=== PATIENT | female | born 1985 | race Caucasian/White ===

== ENCOUNTER 2016-07-28 11:50 | Emergency (ER) | payer OTHER ==
[~2016-07-28] VITALS: Ht 167.6 cm; Wt 108.0 kg
[2016-07-28] MEDS ORDERED: LACTATED RINGER'S 1000 ML INJ 1,000 ML IV SCH (12:49)
--- NOTE | 2016-07-28 12:59 | PD ---
HPI Travel History International Travel<30 Days: No Contact w/Intl Traveler<30Days: No Known Affected Area: No History of Present Illness HPI This patient is a 31-year-old 1 para 0 EDC is November 24, 2016 presently at 23 weeks and 6 days she presents with the chief complaint of dizziness and feeling tired like she is going to pass out States that for the past several years she's been feeling like her heart is racing. States that the cramping is intermittent mild nonradiating nothing makes it better nothing makes it worse Also has a chief complaint of cramps in her lower uterine area and vagina no ruptured membranes no vaginal bleeding denies any urinary tract symptoms no recent sexual intercourse no discharge odors or itching States that she's had nausea and vomiting throughout the entire and last vomited one week ago care with Dr. Iqbal no problems other than the nausea and vomiting early in the History Past Medical History Narrative Medical Allergy to sulfa History of asthma and anxiety States that she has had an anaphylactic reaction in the past due to allergies seasonal allergies which leads to asthma Obstetric History Obstetric History First Past Surgical History Narrative Surgical Tonsils and adenoids Family History Narrative Family History Diabetes hypertension heart disease Social History Alcohol Use: No Tobacco Use: No Substance Abuse: No Allergies-Medications (Allergen,Severity, Reaction): Coded Allergies: Sulfa (Verified Allergy, Mild, vomiting, 07/28/16) Comments Allergy to sulfa Review of Systems General / Constitutional: Weight Loss (15 pound weight loss early in the due to nausea vomiting) Eyes: No: Diploplia, Blurred Vision, Visual changes, Pain, Photophobia, Other HENT: Headaches (has a mild headache) Cardiovascular: Other (occasionally feels like heart is racing) Respiratory: No: Cough, Short of Breath, Wheezing, Other Gastrointestinal: Nausea, Vomiting (history of nausea vomiting none presently) , Abdominal Pain (lower abdominal cramping) Genitourinary: Frequency Musculoskeletal: Weakness Skin: No Rash, No Itching, No Dryness, No Lumps, No Change in Pigmentation, No Change in Nails, No Alopecia, No Lesions, No Breast Lumps, No Breast Tenderness , No Breast Swelling, No Other Neurologic: Dizziness, No: Weakness, Syncope, Focal Abnormalities, Coordination Problem, Headache, Slurred Speech, Seizures, Other Psychiatric: Anxiety Physical Exam Narrative GENERAL: Well-nourished, well-developed patient. Alert oriented 3 and cooperative in no acute distress SKIN: Warm and dry. HEAD: Normocephalic and atraumatic. EYES: No scleral icterus. No injection or drainage. Conjunctiva are pink ENT: No nasal drainage noted. Mucous membranes pink. Airway patent. NECK: Supple, trachea midline. No JVD. CARDIOVASCULAR: Regular rate and rhythm without murmurs, gallops, or rubs. RESPIRATORY: Breath sounds equal bilaterally. No accessory muscle use. ABDOMEN/GI: Abdomen soft, non-tender, bowel sounds present, no rebound, no guarding uterus is consistent with 23 weeks Gravid to [-] weeks size 23 Fundal Height: [-] GENITOURINARY: Speculum exam no fluid no blood cervical ectropion is present External Genitalia: intact and normal in appearance BUS glands: [-] Cervix: [-] Posterior Dilatation: [-] 0 Effacement: [-] 0 Station: [-] High Presentation: [-] Membranes: [intact Uterine Contractions: [-]0 FHT's: Category: [-] Baseline: [-] 150 on ultrasound Reactive: [-] Variability: [-] Decels: [-] EXTREMITIES: No cyanosis or edema. 2+ NEUROLOGICAL: Awake and alert. Motor and sensory grossly within normal limits. Five out of 5 muscle strength in all muscle groups. Normal speech. Data Data Vital Signs Reviewed: Yes (127/86 pulse is 103 she is afebrile) Labs Glucose fingerstick of 76 Bedside ultrasound is done it's a vertex presentation BPD is 5.68 equaling 23 weeks and 3 days Anterior grade 2 placenta No abruption no previa Largest amniotic fluid pocket is 5.65 x 3.2 heart rate is 150 No funneling at the internal os Cervical length approximately 5 cm MDM Medical Record Reviewed: No Interpretation(s) 31-year-old at 23 weeks and 6 days Not in labor Mild dehydration Rule out anemia Rule out labor risk Plan heart rate via Doppler/ultrasound IV fluid hydration CBC, fingerstick, urinalysis fibronectin By mouth fluid hydration Reevaluation hemoglobin is 11 hematocrit is 34 Culture is indicated on the urinalysis fibronectin is negative We'll discharge patient home Rest Warm tub bath By mouth fluid hydration Keflex 500 mg by mouth 3 times a day for 7 days Keep her next appointment with Dr. Iqbal Diagnosis Diagnosis: Primary Impression: 23 weeks gestation of Additional Impression: UTI (urinary tract infection) in in second trimester Disposition: 01 DISCHARGE HOME Condition: Stable Deysi Young MD July 28, 2016 12:59
[2016-07-28 13:13] LABS: HEMATOCRIT 34.7 % (35.0-46.0); MEAN CELL VOLUME 86.8 FL (80.0-100.0); MEAN CORPUSCULAR HEMOGLOBIN 29.1 PG (27.0-34.0); MEAN CORPUSCULAR HGB CONC 33.5 % (32.0-36.0); PLATELET COUNT 192 TH/MM3 (150-450); RED CELL DISTRIBUTION WIDTH 14.1 % (11.6-17.2); REVIEW FLAG FINAL; WHITE BLOOD COUNT 11.1 TH/MM3 (4.0-11.0)
[2016-07-28 13:17] LABS: BACTERIA, URINE FEW /hpf; BLOOD, URINE NEG (NEG); GLUCOSE,URINE NEG (NEG); KETONE, URINE NEG (NEG); MUCUS URINE FEW /lpf (OCC); NITRITE,URINE NEG (NEG); PH, URINE 6.5 (5.0-8.5); SQUAMOUS EPITHELIAL CELL URINE 12 /hpf (0-5); TRANSITIONAL EPI CELLS, URINE <1 /hpf; URINE COLOR YELLOW (YELLW/STRAW)
[2016-07-28 13:18] LABS: COMMENT (UR) CULTURE INDICATED; CULTURE IF INDICATED CULTURE INDICATED
== END 2016-07-28 14:42 | disposition home or self-care (01) ==
LOC: HOBED 11:50
DX: O23.42 Unspecified infection of urinary tract in pregnancy, second trimester (principal); Z3A.23 23 weeks gestation of pregnancy
CPT/HCPCS: 76815; 81001; 82731; 85027; 87086; 96360; 99284; J7120

== ENCOUNTER 2016-11-04 05:52 | Emergency (ER) | payer OTHER ==
--- NOTE | 2016-11-04 06:57 | PD ---
HPI Chief Complaint Complains of contractions Date Seen: Nov 04, 2016 Travel History International Travel<30 Days: No Contact w/Intl Traveler<30Days: No Known Affected Area: No History of Present Illness HPI Patient is a 31-year-old white female at [address] Cowan. She presents combining of contractions. No bleeding or leakage of fluid. heart rate tracing is reactive and she is tova. Patient is a she was seen in the office yesterday or today before checked and was 3-4 cm and stripped her membranes., Para: 0 : 1 History Past Medical History Narrative Medical Gestational diabetes diet controlled Social History Alcohol Use: No Tobacco Use: No Substance Abuse: No Allergies-Medications (Allergen,Severity, Reaction): Coded Allergies: Sulfa (Sulfonamide Antibiotics) (Unverified Allergy, Mild, vomiting, ) Review of Systems General / Constitutional: No: Fever, Weight Gain, Chills, Other Eyes: No: Diploplia, Blurred Vision, Visual changes, Pain, Photophobia HENT: No: Headaches, Vertigo, Lightheadedness Cardiovascular: No: Irregular Rhythm, Chest Pain or Discomfort, Palpitations, Tachycardia, Syncope, Varicosities, Edema, Cyanosis Respiratory: No: Cough, Short of Breath, Other Gastrointestinal: Abdominal Pain, No: Nausea, Vomiting, Diarrhea Genitourinary: No: Decreased Urinary Output, Oliguria Musculoskeletal: No: Limited ROM, Weakness, Cramping, Edema, Pain Skin: No Rash, No Itching, No Dryness, No Lumps, No Change in Pigmentation, No Change in Nails, No Alopecia, No Lesions Neurologic: No: Weakness, Dizziness, Syncope, Focal Abnormalities, Coordination Problem, Headache, Slurred Speech, Seizures Psychiatric: No: Depression, Suicidal Ideations, Homicidal Ideation Endocrine: No: Heat Intolerance, Cold Intolerance, Polydipsia, Polyuria, Other Physical Exam Narrative GENERAL: Well-nourished, well-developed patient. SKIN: Warm and dry. HEAD: Normocephalic and atraumatic. EYES: No scleral icterus. No injection or drainage. ENT: No nasal drainage noted. Mucous membranes pink. Airway patent. NECK: Supple, trachea midline. No JVD. CARDIOVASCULAR: Regular rate and rhythm without murmurs, gallops, or rubs. RESPIRATORY: Breath sounds equal bilaterally. No accessory muscle use. BREASTS: Bilateral exam showed no masses , no retractions, no nipple discharge. ABDOMEN/GI: Abdomen soft, non-tender, bowel sounds present, no rebound, no guarding Gravid to [-37] weeks size Fundal Height: [37-] GENITOURINARY: External Genitalia: intact and normal in appearance BUS glands: [-] Cervix: [-] Dilatation: [-3-4 cm] Effacement: [50-] Station: [-3] Presentation: [vtx-] Membranes: [intact ] Uterine Contractions: [q 3 min-] FHT's: Category: [-1] Baseline: [-133] Reactive: [-yes] Variability: [-mod] Decels: [none-] EXTREMITIES: No cyanosis or edema. BACK: Nontender without obvious deformity. No CVA tenderness. NEUROLOGICAL: Awake and alert. Motor and sensory grossly within normal limits. Five out of 5 muscle strength in all muscle groups. Normal speech. MDM Interpretation(s) Patient is 31-year-old white female at 37 weeks presents planning contractions. She is having some discomfort with ,but not a lot of pain. No bleeding or leakage of fluid. heart rate tracing is reactive. She is tova about every 3 minutes. Patient's cervix is some is was when she was checked several days ago 3-4 thick and high. Plan Plan to discharge home patient return when contractions are stronger and more regular or if she starts bleeding or leakage of fluid. She is to follow-up with her OB provider Jayson Pierre II, MD Nov 04, 2016 06:57
--- NOTE | 2016-11-04 07:05 | PD ---
HPI Chief Complaint contractions Date Seen: Nov 04, 2016 Travel History International Travel<30 Days: No Contact w/Intl Traveler<30Days: No Known Affected Area: No History of Present Illness HPI Ms. Lieberman is a 31 yo G[address] Iqbal at 37 1/7 weeks who presents with concern for contractions. Patient states that she began having contractions at approximately 3:30 this morning which she describes as worsening and worse than cramping related to menstruation. Patient states that this pain is also in her back. Patient reports that she was instructed to seek care at OB ED in case of possible labor. Patient states that she saw Dr. Mcclellan yesterday; cervical check was performed and patient was reportedly 34 centimeters dilated. Patient reports that her membranes were swept, that she subsequently lost her mucous plug yesterday. She attributes this to onset of contractions which have been worsening. Patient reports some mucousy/bloody discharge, dysphagia that she suspects this is her mucous plug. Patient does not think she lost alana vaginal fluid or vaginal bleeding. Patient reports normal movement. Patient reports benign course with exception of diet controlled gestational diabetes. Patient also reports history of asthma but that she has not had to use previously prescribed albuterol inhaler. Patient does not report chest pain, shortness of breath, vomiting, dysuria, or other symptoms this time. Patient does report nausea. : 1 History Past Medical History Narrative Medical Asthmaprescribed Advair but does not use Medical History: Denies Significant Hx Obstetric History Obstetric History G1 GDM -Diet controlled Past Surgical History Narrative Surgical No past surgical history reported Family History Narrative Family History Coronary artery disease, hypertension, T2 DM Social History Alcohol Use: No Tobacco Use: No Substance Abuse: No Allergies-Medications (Allergen,Severity, Reaction): Coded Allergies: Sulfa (Sulfonamide Antibiotics) (Unverified Allergy, Mild, vomiting, ) Review of Systems General / Constitutional: No: Fever Eyes: No: Blurred Vision HENT: No: Headaches Cardiovascular: No: Chest Pain or Discomfort Respiratory: No: Short of Breath Gastrointestinal: Nausea, Abdominal Pain, No: Vomiting Genitourinary: No: Dysuria Physical Exam reassuring Narrative GENERAL: Well-nourished, well-developed patient. SKIN: Warm and dry. HEAD: Normocephalic and atraumatic. EYES: No scleral icterus. No injection or drainage. ENT: No nasal drainage noted. Mucous membranes pink. Airway patent. NECK: Supple, trachea midline. No JVD. CARDIOVASCULAR: Regular rate and rhythm without murmurs, gallops, or rubs. RESPIRATORY: Breath sounds equal bilaterally. No accessory muscle use. ABDOMEN/GI: Abdomen soft, non-tender, bowel sounds present, no rebound, no guarding Gravid EXTREMITIES: No cyanosis or edema. NEUROLOGICAL: Awake and alert. Motor and sensory function grossly within normal limits. GENITOURINARY: External Genitalia: intact and normal in appearance Cervix: Dilatation: 3-4cm Effacement: 50% Station: -3 Presentation: V Membranes: intact Uterine Contractions: irritability FHT's: Category: 1 Baseline: 135 Reactive: Y Variability: Mod Decels: None Data Data Vital Signs Reviewed: Yes MDM Medical Record Reviewed: Yes Narrative Course / MDM 31 yo G1 [address] of [address] Iqbal at 37 1/7 weeks -Cat 1 rhythm Cervix 3-4 cm/50%/-3 -Irritability on EFM -Diet controlled GDM? per EMR -GBS obtained last week; result unknown Plan: -Continue EFM -Due to lack of cervical change since appointment with Dr. Mcclellan yesterday, will monitor for contractions and plan to recheck cervix to assess whether making change Updated plan: No contractions on EFM suggesting cervical change. Patient deemed stable for discharge home due to suspected early latent labor. Patient advised to return to the ED with contractions occurring every 34 minutes 1 hour or other concerns such as loss of fluid, vaginal bleeding, or decreased movement Diagnosis Diagnosis: Primary Impression: 37 weeks gestation of Additional Impression: False labor after 37 completed weeks of gestation Disposition: 01 DISCHARGE HOME Condition: Stable Patient Instructions: General Instructions, Early Labor Signs (ED), Gestational Diabetes (ED) Ariel Figueroa MD, R3 Nov 04, 2016 07:05
== END 2016-11-04 08:23 | disposition home or self-care (01) ==
LOC: HOBED 05:52
DX: O47.1 False labor at or after 37 completed weeks of gestation (principal); R11.0 Nausea; J45.909 Unspecified asthma, uncomplicated; Z3A.37 37 weeks gestation of pregnancy
CPT/HCPCS: 59025

== ENCOUNTER 2016-11-05 11:33 | Inpatient (IN) | payer OTHER ==
[2016-11-05] VITALS (76 sets, daily range): BP systolic 84–159; BP diastolic 36–97; PULSE 64–157; RESP 16–20; TEMP 98.3–98.9
[2016-11-05] MEDS ORDERED: CITRIC ACID-SODIUM CITRATE LIQ 30 ML UDC PO SCH (12:15)
[2016-11-05] MEDS ORDERED: LIDOCAINE HCL 1% 50 ML VIAL INFIL PRN (12:15)
[2016-11-05] MEDS ORDERED: OXYTOCIN 30 UNITS-500ML PREMIX 500 ML IV ONE (12:15)
[2016-11-05] MEDS ORDERED: MINERAL OIL 10 ML VIAL TOPICAL PRN (12:15)
[2016-11-05] MEDS ORDERED: LACTATED RINGER'S 1000 ML INJ 1,000 ML IV SCH (12:15)
[2016-11-05] MEDS ORDERED: LIDOCAINE HCL 1% 50 ML VIAL I-DERMAL PRN (12:15)
[2016-11-05] MEDS ORDERED: SODIUM CHLORID 0.9% 500 ML INJ 500 ML IV PRN (12:15)
[2016-11-05] MEDS ORDERED: LACTATED RINGER'S 1000 ML INJ 1,000 ML IV PRN (12:15)
--- NOTE | 2016-11-05 12:23 | HHI.HP ---
HPI Chief Complaint Leaking fluid Date Seen: Nov 05, 2016 Travel History International Travel<30 Days: No Contact w/Intl Traveler<30Days: No Known Affected Area: No History of Present Illness HPI Patient is 31-year-old white female at 37-38 weeks who is a patient Dr. Cowan who presents with gross ruptured membranes. Denies bleeding. She is having a few contractions. heart rate tracing is reactive and contractions are noted on the monitor. Para: 0 : 1 Last Menstrual Period: Nov 05, 2016 History Past Medical History Narrative Medical Gestational diabetes diet controlled Social History Alcohol Use: No Tobacco Use: No Substance Abuse: No Allergies-Medications (Allergen,Severity, Reaction): Coded Allergies: Sulfa (Sulfonamide Antibiotics) (Unverified Allergy, Mild, vomiting, ) Review of Systems General / Constitutional: No: Fever, Weight Gain, Chills, Other Eyes: No: Diploplia, Blurred Vision, Visual changes, Pain, Photophobia HENT: No: Headaches, Vertigo, Lightheadedness Cardiovascular: No: Irregular Rhythm, Chest Pain or Discomfort, Palpitations, Tachycardia, Syncope, Varicosities, Edema, Cyanosis Respiratory: No: Cough, Short of Breath, Other Gastrointestinal: No: Nausea, Vomiting, Diarrhea Genitourinary: No: Decreased Urinary Output, Oliguria Musculoskeletal: No: Limited ROM, Weakness, Cramping, Edema, Pain Skin: No Rash, No Itching, No Dryness, No Lumps, No Change in Pigmentation, No Change in Nails, No Alopecia, No Lesions Neurologic: No: Weakness, Dizziness, Syncope, Focal Abnormalities, Coordination Problem, Headache, Slurred Speech, Seizures Psychiatric: No: Depression, Suicidal Ideations, Homicidal Ideation Endocrine: No: Heat Intolerance, Cold Intolerance, Polydipsia, Polyuria, Other Physical Exam Narrative GENERAL: Well-nourished, well-developed patient. SKIN: Warm and dry. HEAD: Normocephalic and atraumatic. EYES: No scleral icterus. No injection or drainage. ENT: No nasal drainage noted. Mucous membranes pink. Airway patent. NECK: Supple, trachea midline. No JVD. CARDIOVASCULAR: Regular rate and rhythm without murmurs, gallops, or rubs. RESPIRATORY: Breath sounds equal bilaterally. No accessory muscle use. BREASTS: Bilateral exam showed no masses , no retractions, no nipple discharge. ABDOMEN/GI: Abdomen soft, non-tender, bowel sounds present, no rebound, no guarding Gravid to [-38] weeks size Fundal Height: [38-] GENITOURINARY: External Genitalia: intact and normal in appearance BUS glands: [-] Cervix: [-] Dilatation: [5-6-] Effacement: [50-] Station: [-3] Presentation: [vtx-] Membranes: ruptured] Uterine Contractions: [reg-] FHT's: Category: [-1] Baseline: [133-] Reactive: [yes-] Variability: [mod-] Decels: [none-] EXTREMITIES: No cyanosis or edema. BACK: Nontender without obvious deformity. No CVA tenderness. NEUROLOGICAL: Awake and alert. Motor and sensory grossly within normal limits. Five out of 5 muscle strength in all muscle groups. Normal speech. Data Data Orders Ob (2e) Additional Admit Info (11/05/16 12:00) Ob (2e) Additional Admit Info (11/05/16 12:14) Labs amnisure ++ GBS neg Assessment/Plan Assessment and Plan Patient is 31-year-old white female at 37-1/2 weeks presents with gross rupture membranes and early labor. She sees Dr. qIbal for care. Heart rate tracing is reactive and she is tova on the monitor. cx 6 cm 50% /-3 . GBS is negative Impression SROM at 30 7/2 weeks early labor Admit for labor management/augmentation and anticipate vaginal delivery Jayson Degroot II, MD Nov 05, 2016 12:23
[2016-11-05] MEDS ORDERED: SODIUM CHLOR 0.9% 1000 ML INJ 1,000 ML IV PRN (12:35)
[2016-11-05 12:55] LABS: BACTERIA, URINE RARE /hpf; BLOOD, URINE NEG (NEG); COMMENT (UR) CULTURE INDICATED; CULTURE IF INDICATED CULTURE INDICATED; GLUCOSE,URINE NEG (NEG); KETONE, URINE 40 mg/dL (NEG); MUCUS URINE FEW /lpf (OCC); NITRITE,URINE NEG (NEG); PH, URINE 6.5 (5.0-8.5); SQUAMOUS EPITHELIAL CELL URINE 7 /hpf (0-5); URINE COLOR YELLOW (YELLW/STRAW)
[2016-11-05] MEDS ORDERED: OXYTOCIN 30 UNITS-500ML PREMIX 500 ML IV SCH (13:15)
[2016-11-05 13:26] LABS: AUTOMATED NEUTROPHIL # 8.6 TH/MM3 (1.8-7.7); BASOPHIL % 0.4 % (0.0-2.0); EOSINOPHIL # 0.1 TH/MM3 (0-0.4); HEMATOCRIT 36.7 % (35.0-46.0); HEMO FLAGS DIFF FINAL; LYMPHOCYTE # 1.7 TH/MM3 (1.0-4.8); MEAN CELL VOLUME 87.5 FL (80.0-100.0); MEAN CORPUSCULAR HEMOGLOBIN 28.8 PG (27.0-34.0); MEAN CORPUSCULAR HGB CONC 32.9 % (32.0-36.0); MONO % 5.8 % (0.0-8.0); NEUT % 77.8 % (16.0-70.0); PLATELET COUNT 155 TH/MM3 (150-450); RED BLOOD COUNT 4.19 MIL/MM3 (4.00-5.30); RED CELL DISTRIBUTION WIDTH 13.7 % (11.6-17.2)
[2016-11-05] MEDS ORDERED: ePHEDrine/NS 25 MG/5 ML SYR ONE (16:22)
[2016-11-05] MEDS ORDERED: fentaNYL 2MCG-BUPIV 0.125% INJ 100 ML ONE (16:22)
[2016-11-05] MEDS ORDERED: BUPIVACAINE HCL PF 0.25% 10 ML VIAL ONE (16:36)
[2016-11-05] MEDS ORDERED: DO NOT ADMINISTER ANTICOAGULANTS PRN (17:45)
[2016-11-05] MEDS ORDERED: ePHEDrine/NS 25 MG/5 ML SYR IV PRN (17:45)
[2016-11-05] MEDS ORDERED: NO SYSTEM NARCOTICS PRN (17:45)
[2016-11-05] MEDS ORDERED: fentaNYL 2MCG-BUPIV 0.125% 100 ML EPIDURAL SCH (17:45)
[2016-11-06] VITALS (11 sets, daily range): BP systolic 115–141; BP diastolic 69–81; PULSE 79–116; RESP 16–20; TEMP 97.8–98.9
--- NOTE | 2016-11-06 00:11 | PD.OB.DELI ---
Delivery Date: Nov 05, 2016 Anesthesia: Epidural Episiotomy: None Vaginal Delivery: Normal Presentation: Occiput anterior Nuchal Cord: None Delayed cord clamping (45 sec): Yes Infant: Male One Minute : 7 Five Minute : 8 Weight: pending, baby to nicu Placenta: Spontaneous delivery Laceration: 2 deg Repair: Chromic running Estimated blood loss: 300ml Additional Information Baby to NICU, required O2 supplementation Yue Iqbal MD Nov 06, 2016 00:11
[2016-11-06] MEDS ORDERED: DOCUSATE SODIUM 50 MG/SENNA 8.6 MG TAB PO PRN (00:15)
[2016-11-06] MEDS ORDERED: SODIUM CHLORIDE 0.9% FLUSH 10 ML FLUSH IV FLUSH PRN (00:15)
[2016-11-06] MEDS ORDERED: OXYTOCIN 30 UNITS-500ML PREMIX 500 ML IV SCH (00:15)
[2016-11-06] MEDS ORDERED: ALUMINUM/MAGNESIUM/SIMETH 30 ML CUP PO PRN (00:15)
[2016-11-06] MEDS ORDERED: BENZOCAINE 20% TOPICAL SPRAY 60 ML CAN TOPICAL PRN (00:15)
[2016-11-06] MEDS ORDERED: ZOLPIDEM TARTRATE 5 MG TAB PO PRN (00:15)
[2016-11-06] MEDS ORDERED: ONDANSETRON ODT 4 MG TAB PO PRN (00:15)
[2016-11-06] MEDS: IBUPROFEN 600 MG TAB PO PRN ×3 (02:55→18:12)
[2016-11-06] MEDS: WITCH HAZEL 50%/GLYCERIN 12.5% 40 PAD JAR TOPICAL PRN (02:55)
[2016-11-06] MEDS ORDERED: SODIUM CHLORIDE 0.9% FLUSH 10 ML FLUSH IV FLUSH SCH (09:00)
--- NOTE | 2016-11-06 11:56 | HHI.OB ---
Subjective Post Day: 1 Remarks doing well. baby in nicu but off of cpap now. Objective Vitals/I&O Vital Signs Date Time Temp Pulse Resp B/P Pulse Ox O2 Delivery O2 Flow Rate FiO2 11/06/16 07:27 97.8 83 18 141/81 11/06/16 02:30 98.5 98 20 128/78 11/06/16 01:01 97 136/73 11/06/16 01:01 97 136/73 11/06/16 00:58 18 11/06/16 00:46 101 130/78 11/06/16 00:31 112 115/78 11/06/16 00:30 98.9 11/06/16 00:30 18 11/06/16 00:20 20 11/06/16 00:16 111 121/74 11/06/16 00:01 116 135/75 11/06/16 00:01 116 135/75 11/05/16 23:50 20 11/05/16 23:31 143 140/82 11/05/16 23:01 125 159/93 11/05/16 22:46 127 1817 22:46 156/70 18 22:35 20 1817 22:31 113 159/64 17 22:17 110 125/71 1817 22:15 20 11/05/16 22:01 115 139/97 1817 21:46 102 125/85 1817 21:45 18 1817 21:31 96 126/70 1817 21:17 104 103/64 1817 21:15 20 1817 21:00 82 109/72 1817 20:46 92/71 1817 20:46 157 18/17 20:34 18 18/17 20:31 97 113/61 1817 20:16 102 110/71 18/17 20:13 16 18/17 20:13 18 18/17 20:01 94 122/67 18/17 19:45 18 18/17 19:45 103 121/76 1817 19:31 118 110/83 1817 19:16 94 8/18/17 19:16 123/72 8/18/17 19:15 18 8/18/17 19:15 98.7 8/18/17 19:01 124/76 8/18/17 19:01 87 8/18/17 18:46 87 126/71 8/18/17 18:45 20 8/18/17 18:30 97 106/56 8/18/17 18:16 96 95/52 8/18/17 18:07 98.8 20 8/18/17 18:01 94 105/52 8/18/17 17:46 90 117/71 8/18/17 17:45 85 8/18/17 17:45 20 8/18/17 17:40 82 8/18/17 17:35 80 8/18/17 17:31 89 108/81 818/17 17:30 88 8/18/17 17:25 83 8/18/17 17:20 88 818/17 17:16 95 99/71 818/17 17:15 92 18/17 17:10 84 818/17 17:10 90 818/17 17:08 74 95/46 818/17 17:06 64 84/36 8/18/17 17:05 82 8/18/17 17:05 81 818/17 17:01 97 112/62 818/17 17:00 104 818/17 17:00 20 8/18/17 17:00 108 818/17 16:56 97 111/74 818/17 16:55 90 8/18/17 16:55 92 8/18/17 16:51 88 124/78 8/18/17 16:50 89 8/18/17 16:50 87 8/18/17 16:45 90 126/78 8/18/17 16:45 88 8/18/17 16:45 89 8/18/17 16:40 94 8/18/17 16:40 93 118/77 8/18/17 16:40 84 8/18/17 16:35 96 8/18/17 16:35 98 8/18/17 16:30 103 8/18/17 15:41 93 111/79 8/18/17 15:40 95 8/18/17 15:35 97 8/18/17 15:30 99 11/05/16 15:29 98.9 20 11/05/16 15:25 96 11/05/16 15:20 93 109/71 11/05/16 15:20 91 11/05/16 15:15 100 11/05/16 15:09 20 11/05/16 15:08 98 108/71 11/05/16 15:05 97 11/05/16 15:00 99 11/05/16 14:30 98.3 20 11/05/16 14:25 101 11/05/16 14:20 98 11/05/16 14:15 95 11/05/16 14:15 95 121/77 11/05/16 13:25 95 11/05/16 13:23 95 118/67 11/05/16 13:20 97 11/05/16 13:15 103 Objective Remarks GENERAL: Well-nourished, well-developed patient. CARDIOVASCULAR: Regular rate and rhythm without murmurs, gallops, or rubs. RESPIRATORY: Breath sounds equal bilaterally. No accessory muscle use. ABDOMEN/GI: Abdomen soft, non-tender. Fundus: Firm, non-tender at umbilicus. GENITOURINARY: Light to moderate bleeding. EXTREMITIES: No cyanosis or edema, non-tender, without signs of DVT. Medications and IVs Current Medications Medications (Trade) Dose Ordered Sig/Nimco Route Start Time Stop Time Status Last Admin (NS Flush) 2 ml BID IV FLUSH 11/06/16 09:00 (NS Flush) 2 ml UNSCH PRN IV FLUSH 11/06/16 00:15 (Tylenol) 650 mg Q4H PRN PO 11/06/16 00:15 (Motrin) 600 mg Q6H PRN PO 11/06/16 00:15 11/06/16 02:55 (Americaine 20% Top Spr) 1 spray Q4H PRN TOPICAL 11/06/16 00:15 11/06/16 02:55 (Tucks Pads) 1 applic QID PRN TOPICAL 11/06/16 00:15 11/06/16 02:55 (Jyoti-Colace) 2 tab Q12H PRN PO 11/06/16 00:15 (Ambien) 5 mg HS PRN PO 11/06/16 00:15 (M-M-R Ii Inj) 0.5 ml ONCE ONCE SQ 11/06/16 16:00 11/06/16 16:01 (Boostrix Inj) 0.5 ml ONCE ONCE IM 11/06/16 16:00 11/06/16 16:01 (Mag-Al Plus Susp Liq) 15 ml Q8H PRN PO 11/06/16 00:15 (Zofran Odt) 4 mg Q6H PRN PO 11/06/16 00:15 Assessment/Plan Assessment and Plan pod 1 sp rhogam eval cont routine supportive care Discharge Planning dc home ppd 2 Yue Iqbal MD Nov 06, 2016 11:56
[2016-11-06] MEDS: ACETAMINOPHEN 325 MG TAB PO PRN ×2 (11:59→18:13)
[2016-11-06] MEDS ORDERED: DIPHTH/TETANUS/ACEL PERTUSSIS (BOOSTER) 0.5 ML VIAL/PFS IM ONE (16:00)
[2016-11-06] MEDS ORDERED: MEASLES, MUMPS, RUBELLA VACCINE 0.5 ML VIAL SQ ONE (16:00)
--- NOTE | 2016-11-06 18:05 | HHI.DCPOC ---
Discharge Care Plan Diagnosis: (1) (spontaneous vaginal delivery) Your Health Problems Are: Abdominal pain Report Symptoms to Your Doctor -Temperature above 100.5 degrees -Redness, of incision or excessive or foul smelling drainage -Unusual pain or calf pain -Increased vaginal bleeding -Painful or difficulty urinating -Feelings of extreme sadness or anxiety after 2 weeks Goals to Promote Your Health * To prevent worsening of your condition and complications * To maintain your health at the optimal level Directions to Meet Your Goals Take your medications as prescribed Follow your dietary instruction Follow activity as directed Ensure plenty of rest for recovery Drink fluids for hydration Keep your appointments as scheduled Take your immunizations and boosters as scheduled If your symptoms worsen call your PCP, if no PCP go to Urgent Care Center or Emergency Room Smoking is Dangerous to Your Health. Avoid second hand smoke Call the 24-hour crisis hotline for domestic abuse at Yue Iqbal MD Nov 06, 2016 18:05
[2016-11-06] MEDS ORDERED: IBUP-232 PO (18:06)
[2016-11-07] MEDS: IBUPROFEN 600 MG TAB PO PRN ×2 (00:09→07:45)
[2016-11-07] MEDS: ACETAMINOPHEN 325 MG TAB PO PRN ×2 (00:10→07:45)
--- NOTE | 2016-11-07 05:16 | HHI.OB ---
Subjective Post Day: 2 Remarks Doing well, Baby not on O2 any more. She was able to br feed last night Objective Vitals/I&O Vital Signs Date Time Temp Pulse Resp B/P Pulse Ox O2 Delivery O2 Flow Rate FiO2 11/06/16 22:20 97.8 79 16 120/69 11/06/16 07:27 97.8 83 18 141/81 Objective Remarks GENERAL: Well-nourished, well-developed patient. CARDIOVASCULAR: Regular rate and rhythm without murmurs, gallops, or rubs. RESPIRATORY: Breath sounds equal bilaterally. No accessory muscle use. ABDOMEN/GI: Abdomen soft, non-tender. Fundus: Firm, non-tender at umbilicus. GENITOURINARY: Light to moderate bleeding. EXTREMITIES: No cyanosis or edema, non-tender, without signs of DVT. Medications and IVs Current Medications Medications (Trade) Dose Ordered Sig/Nimco Route Start Time Stop Time Status Last Admin (NS Flush) 2 ml BID IV FLUSH 11/06/16 09:00 (NS Flush) 2 ml UNSCH PRN IV FLUSH 11/06/16 00:15 (Tylenol) 650 mg Q4H PRN PO 11/06/16 00:15 11/07/16 00:10 (Motrin) 600 mg Q6H PRN PO 11/06/16 00:15 11/07/16 00:09 (Americaine 20% Top Spr) 1 spray Q4H PRN TOPICAL 11/06/16 00:15 11/06/16 02:55 (Tucks Pads) 1 applic QID PRN TOPICAL 11/06/16 00:15 11/06/16 02:55 (Jyoti-Colace) 2 tab Q12H PRN PO 11/06/16 00:15 11/06/16 11:58 (Ambien) 5 mg HS PRN PO 11/06/16 00:15 (Mag-Al Plus Susp Liq) 15 ml Q8H PRN PO 11/06/16 00:15 (Zofran Odt) 4 mg Q6H PRN PO 11/06/16 00:15 Assessment/Plan Assessment and Plan pod 2 s/p rhogam eval cont routine supportive care Discharge Planning dc home ppd 2 Yue Iqbal MD Nov 07, 2016 05:16
[2016-11-07] MEDS: WITCH HAZEL 50%/GLYCERIN 12.5% 40 PAD JAR TOPICAL PRN (07:53)
[2016-11-07 08:00] VITALS: BP 106/70; PULSE 94; RESP 20; TEMP 98
== END 2016-11-07 11:30 | disposition home or self-care (01) | DRG 775 ==
LOC: HOBED 11:33 → H2EA 12:06 → H1EA 11-06 02:41
PROVIDERS: ADMIT Obstetrics & Gynecology; ATTEND Obstetrics & Gynecology
PROC: 10E0XZZ Delivery of Products of Conception, External Approach (ICD-10-PCS; principal; 2016-11-05)
PROC: 0KQM0ZZ Repair Perineum Muscle, Open Approach (ICD-10-PCS; 2016-11-05)
DX: O24.420 Gestational diabetes mellitus in childbirth, diet controlled (principal); O26.893 Other specified pregnancy related conditions, third trimester; Z37.0 Single live birth; Z3A.37 37 weeks gestation of pregnancy
CPT/HCPCS: 59025; 81001; 84112; 85025; 85461; 86850; 86900; 86901; 87086; 90384; 90715; J2590; J2790; J7120